=== PATIENT | female | born 1960 | race Hispanic/Latino ===

== ENCOUNTER → 2017-10-09 | Day surgery (SDC) | payer OTHER ==
[~2017-10-09] MED LIST: ACET325T51 PO; ALBU0.63 IH; BENZ-51 PO; CEFT1VIA IV; COLI150V5 IJ; DARB40VI SQ; DEXTROSE 50% IV; FOLI1TAB61 PO; GLUC1VIA3 SQ; GLUCOSE 40% GEL PO; GUAIFCF5L PO; INSREG SQ; KETAMINE HCL 100 MG/ML 5ML VIAL IJ ONE; LACT10SO32 PO; LOPE2CAP PO; MAG-55 PO; MECL-129 PO; METO10DI2 IJ; MIDO5TAB PO; NITR0.4T SL; NYST15OI TP; ONDA4DIS2 IJ; PANT40TA25 PO; PROC-13 PO; SCOP1PAT10 TD; SEVE800T7 PO; VANC1PLA9 IV; [UNRECOGNIZED DRUG - CODE] IJ; [UNRECOGNIZED DRUG - CODE] IV; [UNRECOGNIZED DRUG - CODE] IV; [UNRECOGNIZED DRUG - CODE] IV; [UNRECOGNIZED DRUG - CODE] SQ; [UNRECOGNIZED DRUG - OTHER] IJ; [UNRECOGNIZED DRUG - OTHER] PO; [UNRECOGNIZED DRUG - OTHER] TP
== END ==
LOC: ENDO 13:49
PROVIDERS: ATTEND Internal Medicine Gastroenterology
DX: K21.0 Gastro-esophageal reflux disease with esophagitis (principal); K25.9 Gastric ulcer, unspecified as acute or chronic, without hemorrhage or perforation; K22.10 Ulcer of esophagus without bleeding; K94.23 Gastrostomy malfunction; D50.9 Iron deficiency anemia, unspecified; I12.0 Hypertensive chronic kidney disease with stage 5 chronic kidney disease or end stage renal disease; E11.22 Type 2 diabetes mellitus with diabetic chronic kidney disease; N18.6 End stage renal disease; Z99.2 Dependence on renal dialysis; Z79.899 Other long term (current) drug therapy; Z79.84 Long term (current) use of oral hypoglycemic drugs
CPT/HCPCS: 43235; J3490

== ENCOUNTER → 2017-10-20 | Outpatient (CLI) | payer OTHER ==
[~2017-10-20] MED LIST changes: +DIATR MEGLU/DIATRIZOATE SODIUM 30 ML BOTTLE ONE; -KETAMINE HCL 100 MG/ML 5ML VIAL IJ ONE
== END ==
LOC: RAH 11:03
PROVIDERS: ATTEND Internal Medicine
DX: N82.3 Fistula of vagina to large intestine (principal)
CPT/HCPCS: Q9963

== ENCOUNTER 2017-10-26 01:03 | Day surgery (SDC) | payer OTHER ==
[2017-10-26] MEDS ORDERED: SODIUM CHLORIDE 0.9% 1000ML 1,000 ML IV ONE (06:38)
[2017-10-26 13:46] VITALS: BP 105/61
[2017-10-26] MEDS ORDERED: CEFAZOLIN 1GM / D5W 50ML 50 ML ONE (14:55)
[2017-10-26] MEDS ORDERED: MIDO5TAB PO (15:01)
[2017-10-26] MEDS ORDERED: MECL-129 PO (15:01)
[2017-10-26] MEDS ORDERED: LACT10SO32 PO (15:01)
[2017-10-26] MEDS ORDERED: [UNRECOGNIZED DRUG - CODE] IV (15:01)
[2017-10-26] MEDS ORDERED: MAG-55 PO (15:01)
[2017-10-26] MEDS ORDERED: ALBU0.63 IH (15:01)
[2017-10-26] MEDS ORDERED: PANT40TA25 PO (15:01)
[2017-10-26] MEDS ORDERED: [UNRECOGNIZED DRUG - OTHER] TP (15:01)
[2017-10-26] MEDS ORDERED: LOPE2CAP PO (15:01)
[2017-10-26] MEDS ORDERED: GLUCOSE 40% GEL PO (15:01)
[2017-10-26] MEDS ORDERED: FOLI1TAB61 PO (15:01)
[2017-10-26] MEDS ORDERED: BENZ-51 PO (15:01)
[2017-10-26] MEDS ORDERED: [UNRECOGNIZED DRUG - OTHER] IJ (15:01)
[2017-10-26] MEDS ORDERED: VANC1PLA9 IV (15:01)
[2017-10-26] MEDS ORDERED: [UNRECOGNIZED DRUG - CODE] IV (15:01)
[2017-10-26] MEDS ORDERED: PROC-13 PO (15:01)
[2017-10-26] MEDS ORDERED: INSREG SQ (15:01)
[2017-10-26] MEDS ORDERED: [UNRECOGNIZED DRUG - CODE] IV (15:01)
[2017-10-26] MEDS ORDERED: NYST15OI TP (15:01)
[2017-10-26] MEDS ORDERED: GUAIFCF5L PO (15:01)
[2017-10-26] MEDS ORDERED: DEXTROSE 50% IV (15:01)
[2017-10-26] MEDS ORDERED: SCOP1PAT10 TD (15:01)
[2017-10-26] MEDS ORDERED: CEFT1VIA IV (15:01)
[2017-10-26] MEDS ORDERED: [UNRECOGNIZED DRUG - OTHER] PO (15:01)
[2017-10-26] MEDS ORDERED: DARB40VI SQ (15:01)
[2017-10-26] MEDS ORDERED: GLUC1VIA3 SQ (15:01)
[2017-10-26] MEDS ORDERED: ONDA4DIS2 IJ (15:01)
[2017-10-26] MEDS ORDERED: METO10DI2 IJ (15:01)
[2017-10-26] MEDS ORDERED: [UNRECOGNIZED DRUG - CODE] IJ (15:01)
[2017-10-26] MEDS ORDERED: NITR0.4T SL (15:01)
[2017-10-26] MEDS ORDERED: [UNRECOGNIZED DRUG - CODE] SQ (15:01)
[2017-10-26] MEDS ORDERED: COLI150V5 IJ (15:01)
[2017-10-26] MEDS ORDERED: SEVE800T7 PO (15:01)
[2017-10-26] MEDS ORDERED: ACET325T51 PO (15:01)
[2017-10-26 15:11] VITALS: BP 113/68
[2017-10-26 15:56] VITALS: BP 124/57
[2017-10-26 16:11] VITALS: BP 111/59
[2017-10-26 16:26] VITALS: BP 100/59
== END 2017-10-26 16:35 ==
LOC: DAH 01:03
PROVIDERS: ATTEND Internal Medicine Gastroenterology
DX: K21.0 Gastro-esophageal reflux disease with esophagitis (principal); E11.22 Type 2 diabetes mellitus with diabetic chronic kidney disease; E11.43 Type 2 diabetes mellitus with diabetic autonomic (poly)neuropathy; I12.0 Hypertensive chronic kidney disease with stage 5 chronic kidney disease or end stage renal disease; K31.84 Gastroparesis; N18.6 End stage renal disease; Z99.2 Dependence on renal dialysis; D64.9 Anemia, unspecified; L89.893 Pressure ulcer of other site, stage 3; Z83.3 Family history of diabetes mellitus; Z82.49 Family history of ischemic heart disease and other diseases of the circulatory system; Z90.710 Acquired absence of both cervix and uterus; Z98.890 Other specified postprocedural states; I25.10 Atherosclerotic heart disease of native coronary artery without angina pectoris
CPT/HCPCS: 36415; 43246; 82948 ×2; 84132; A4606; J0690; J7030; 93005

== ENCOUNTER → 2017-10-31 | Outpatient (CLI) | payer OTHER ==
[~2017-10-31] MED LIST changes: -DIATR MEGLU/DIATRIZOATE SODIUM 30 ML BOTTLE ONE
== END ==
LOC: RAH 14:16
PROVIDERS: ATTEND Internal Medicine
DX: J18.1 Lobar pneumonia, unspecified organism (principal); J90 Pleural effusion, not elsewhere classified
CPT/HCPCS: 74150